=== PATIENT | female | born 1985 | race Caucasian/White ===

== ENCOUNTER 2022-06-28 19:57 | Emergency (ER) | payer BC ==
[~2022-06-28] VITALS: Ht 170.2 cm; Wt 100.0 kg
[2022-06-28 20:48] LABS: BASOPHILS % 0.2 % (0.0-2.0); EOSINOPHILS % 0.4 % (0.0-5.0); HEMATOCRIT. 37.7 % (36.0-48.0); HEMOGLOBIN. 12.9 g/dL (12.0-16.0); LYMPHOCYTES % 20.5 % (20.0-50.0); MEAN CORPUSCULAR HEMOGLOBIN 31.1 pg (28.0-32.0); MEAN CORPUSCULAR VOLUME 91.2 fL (81.0-99.0); MEAN PLATELET VOLUME 7.9 fl (7.4-10.4); NEUTROPHILS % 73.9 % (40.0-76.0); PLATELET 197 x1000/uL (130-400); RED BLOOD CELL COUNT 4.13 mill/uL (4.2-5.4); RED CELL DISTRIBUTION WIDTH 12.4 % (11.6-14.6)
[2022-06-28 20:54] LABS: CHLORIDE 104 mEq/L (98-107)
[2022-06-28 20:56] LABS: INR 0.9; PROTHROMBIN TIME 10.2 sec (9.6-11.0)
[2022-06-28 21:18] LABS: B-HCG QUANTITATIVE 9223 mIU/mL (<3)
[2022-06-28 21:35] VITALS: BP 124/79
[2022-06-28 22:00] LABS: CLARITY URINE CLEAR (CLEAR); COLOR URINE YELLOW (YELLOW); KETONES URINE 1+ (NEGATIVE); LEUKOCYTE ESTERASE URINE NEGATIVE (NEGATIVE); NITRITE URINE NEGATIVE (NEGATIVE); OCCULT BLOOD URINE NEGATIVE (NEGATIVE); PH URINE 6.5 (4.5-8.0); PROTEIN URINE NEGATIVE (NEGATIVE); UROBILINOGEN URINE 0.2 E.U./dL (0.2-1.0)
== END 2022-06-28 22:32 | disposition home or self-care (01) ==
LOC: ER 19:57
DX: O26.892 Other specified pregnancy related conditions, second trimester (principal); O44.02 Complete placenta previa NOS or without hemorrhage, second trimester; R07.9 Chest pain, unspecified; R06.02 Shortness of breath; R20.2 Paresthesia of skin; G54.0 Brachial plexus disorders; F41.9 Anxiety disorder, unspecified; Z3A.25 25 weeks gestation of pregnancy
CPT/HCPCS: 36415; 76805; 80053; 81003; 84702; 85025; 86850; 86900; 93005; 99285